=== PATIENT | female | born 1950 | race Caucasian/White ===

== ENCOUNTER 2021-10-16 07:18 | Emergency (ER) | payer MEDICARE, OTHER ==
[~2021-10-16] VITALS: Ht 154.9 cm; Wt 68.0 kg
[2021-10-16] VITALS (9 sets, daily range): BP systolic 123–155; BP diastolic 63–96
[2021-10-16] MEDS ORDERED: ASPIRIN81 MG PO (07:54)
[2021-10-16] MEDS ORDERED: ALBUTEROL SUL0.083 % IN (07:54)
[2021-10-16] MEDS ORDERED: DICYCLOMINE10 MG PO (07:55)
[2021-10-16] MEDS ORDERED: FEXOFENADINE60 MG PO (07:56)
[2021-10-16] MEDS ORDERED: FLUTICASONE PRO INHW/SPAC (07:58)
[2021-10-16] MEDS ORDERED: LEVOTHYROXIN75 MCG PO (07:58)
[2021-10-16] MEDS ORDERED: SINGULAIR10 MG PO (07:59)
[2021-10-16] MEDS ORDERED: ZOCOR20 M1 PO (07:59)
[2021-10-16 08:59] LABS: HEMATOCRIT 42.5 % (37.0-47.0); HEMOGLOBIN 13.9 g/dl (12.0-16.0); IMMATURE GRANULOCYTES 0.1 % (0.0-5.0); MEAN CELL VOLUME 93.2 fL CALC (80.0-100.0); MEAN CORPUSCULAR HGB 30.5 pG CALC (26.0-32.0); MEAN CORPUSCULAR HGB CONC 32.7 g/dL CAL (32.0-36.0); NEUT# 9.5 thou/uL (2.00-7.15); RED BLOOD COUNT 4.56 mill/uL (4.20-5.60); RED CELL DISTRI WIDTH 12.1 % (11.5-15.5)
[2021-10-16 09:21] LABS: ALBUMIN 4.5 g/dL (3.2-5.0); ALKALINE PHOSPHATASE 71 u/l (38-126); ANION GAP 16 (6-22 (CALC)); BILIRUBIN, TOTAL 0.6 mg/dL (0.0-1.4); BUN 12 mg/dL (8-23); BUN/CREATININE RATIO 18 (12-20 (CALC)); CARBON DIOXIDE 23 mmol/l (22-30); CHLORIDE 103 mmol/l (95-108); CREATININE 0.7 mg/dL (0.5-1.0); GFR > 60 ML/MIN (>=60 (CALC)); GFR FOR AFR.AMER. > 60 ML/MIN (>=60 (CALC)); SGOT/AST 50 u/l (9-36); SODIUM 138 mmol/l (137-146); TOTAL PROTEIN 7.6 g/dL (6.3-8.2)
[2021-10-16 10:05] LABS: URINE BILIRUBIN - DIPSTICK NEGATIVE (NEGATIVE); URINE COLOR YELLOW; URINE GLUCOSE - DIPSTICK NEGATIVE (NEGATIVE); URINE KETONE TRACE mg/dL (NEGATIVE); URINE LEUK ESTERASE NEGATIVE (NEGATIVE); URINE PROTEIN - DIPSTICK NEGATIVE (NEG-TRACE); URINE SPECIFIC GRAVITY <=1.005; URINE UROBILINOGEN - DIPSTICK 0.2 E.U./dL (0.2)
[2021-10-16 10:15] LABS: URINE BLOOD DIPSTICK TRACE (NEGATIVE); URINE NITRITE - DIPSTICK NEGATIVE (Negative)
[2021-10-16] MEDS ORDERED: OMNI-PAC300 MG PO (10:21)
[2021-10-16] MEDS ORDERED: ONDANSETRON4 MG PO (10:21)
== END 2021-10-16 11:00 | disposition home or self-care (01) ==
LOC: ED 07:18
PROVIDERS: Family Medicine
DX: N39.0 Urinary tract infection, site not specified (principal); J44.9 Chronic obstructive pulmonary disease, unspecified
CPT/HCPCS: S0164